=== PATIENT | female | born 1960 | race Caucasian/White ===

== ENCOUNTER → 2022-09-25 13:42 | Outpatient (BNVA) | payer MEDICARE, MEDICAID, SELFPAY | PROVIDERS: PCP Family Medicine; Visit Provider Specialist | DX: G25.0 Essential tremor (principal); M51.9 Unspecified thoracic, thoracolumbar and lumbosacral intervertebral disc disorder; M50.90 Cervical disc disorder, unspecified, unspecified cervical region; G62.9 Polyneuropathy, unspecified; F10.21 Alcohol dependence, in remission; F41.9 Anxiety disorder, unspecified | CPT/HCPCS: 99205 ==

== ENCOUNTER → 2023-03-25 14:41 | Outpatient (BNVA) | payer MEDICARE, SELFPAY | PROVIDERS: PCP Family Medicine; Visit Provider Specialist | DX: G25.0 Essential tremor (principal); M51.9 Unspecified thoracic, thoracolumbar and lumbosacral intervertebral disc disorder | CPT/HCPCS: 99214 ==

== ENCOUNTER → 2024-04-14 11:44 | Outpatient (BNVA) | payer MEDICARE, SELFPAY | PROVIDERS: PCP Family Medicine; Visit Provider Specialist | DX: M51.9 Unspecified thoracic, thoracolumbar and lumbosacral intervertebral disc disorder; G25.0 Essential tremor | CPT/HCPCS: 99213 ==